=== PATIENT | male | born 1975 | race African-American/Black ===

== ENCOUNTER 2023-04-25 15:38 | Emergency (ER) | payer MEDICAID, OTHER ==
[~2023-04-25] VITALS: Ht 175.3 cm; Wt 99.8 kg
[~2023-04-25 15:38] MED LIST: CYCL5TAB MT
[2023-04-25 16:06] VITALS: O2SAT 98
[2023-04-25] MEDS: KETOROLAC 15MG/ML VIAL IM ONE (17:30)
[2023-04-25 19:10] VITALS: BP 130/90; PULSE 91; RESP 18; TEMP 98.1
== END 2023-04-25 19:21 | disposition home or self-care (01) ==
LOC: ER 15:38
DX: R22.2 Localized swelling, mass and lump, trunk (principal); J45.909 Unspecified asthma, uncomplicated
CPT/HCPCS: 71045; 96372; 99283; J1885; Z7610